=== PATIENT | female | born 1935 | race Caucasian/White ===

== ENCOUNTER 2017-12-17 22:53 | Inpatient (IN) | payer BC, OTHER ==
--- NOTE | 2017-12-18 00:21 | PDOC ---
History of Present Illness - General Chief Complaint: Pain, Acute Stated Complaint: LRFT KNEE PAIN Time Seen by Provider: 12/17/17 23:41 - History of Present Illness Initial Comments: 82-year-old female presents for evaluation of atraumatic bilateral knee pain. She states the pain started while she was sitting on a couch and she was unable to stand because of her weakness. She does have a right total knee arthroplasty which was done about 8 years ago. She has diagnosis of left knee osteoarthritis. She is on Coumadin for atrial fibrillation. Past medical history includes A. fib, hypothyroidism, and hypertension. 12/18/17 00:11 Past History - Past Medical History Allergies/Adverse Reactions: Allergies Allergy/AdvReac Type Severity Reaction Status Date / Time No Known Allergies Allergy Verified 12/17/17 23:53 - Suicide/Smoking/Psychosocial Hx Smoking History: Never smoked Have you smoked in the past 12 months: No Information on smoking cessation initiated: No Hx Alcohol Use: No Drug/Substance Use Hx: No Review of Systems - Review of Systems Musculoskeletal: Yes: Joint Pain All Other Systems: Reviewed and Negative *Physical Exam - Vital Signs Last Vital Signs Temp Pulse Resp BP Pulse Ox 98.1 F 95 H 19 141/79 97 12/17/17 23:46 12/17/17 23:46 12/17/17 23:46 12/17/17 23:46 12/17/17 23:46 - Physical Exam Comments: Right knee skin color and temperature are normal there is a well-healed midline incision. Range of Motion 0-30 with discomfort fine For soft and nontender. She has no gross sensorimotor deficits Left knee skin color and temperature are within normal limits range of motion 0 to about 20. There is pain at terminal flexion no tenderness fine For soft and nontender she has no gross sensorimotor deficits 12/18/17 00:12 12/18/17 00:50 Of note she complains of left elbow pain as well which she feels she may have hurt while trying to lift her self up off the couch. Left elbow skin color and temperature within normal limits is 30 extension lag minimal tenderness flexion is full nonpainful. Upper extremity compartments are soft and nontender. no gross Sensorimotor deficits There is tenderness over the radial head with supination and pronation. 12/18/17 01:51 ED Treatment Course - RADIOLOGY Radiology Studies Ordered: Category Date Time Status KNEE 3 POS-LEFT [RAD] Stat Radiology 12/18/17 00:10 Ordered KNEE 3 POS-RIGHT [RAD] Stat Radiology 12/18/17 00:10 Ordered Medical Decision Making - Medical Decision Making 12/18/17 01:52 Call placed to PCP, pt unable to mobilize home. L elbow raidograph shows a radial head fx of questionable age. R knee patella fx of questionable age. L knee OA 12/18/17 01:53 12/18/17 02:28 Another call to PCP Dr Jones placed *DC/Admit/Observation/Transfer Diagnosis at time of Disposition: Elbow fracture, left, Osteoarthritis involving multiple joints on both sides of body - Discharge Dispostion Condition at time of disposition: Fair Decision to Admit order: Yes - Referrals Referrals: Ajith Jones MD [Primary Care Provider] - - Patient Instructions - Post Discharge Activity
[2017-12-18 07:30] LABS: BASO % 0.6 % (0-2.0); EOS % 0.1 % (0-4.5); HEMOGLOBIN 12.9 GM/dL (10.7-15.3); LYMPH % 10.5 % (8-40); MCH 29.1 pg (25.7-33.7); MCHC 33.2 g/dl (32.0-36.0); MEAN CELL VOLUME 87.8 fl (80-96); MONO % 12.7 % (3.8-10.2); NEUT % 76.1 % (42.8-82.8); PLATELET COUNT 213 K/MM3 (134-434); RBC 4.44 M/mm3 (3.60-5.2); WHITE BLOOD COUNT 10.8 K/mm3 (4.0-10.0)
[2017-12-18 09:28] LABS: ALBUMIN 2.4 g/dl (3.4-5.0); ANION GAP 8 (8-16); BILIRUBIN,TOTAL 0.7 mg/dL (0.2-1.0); BLOOD UREA NITROGEN 13 mg/dL (7-18); CHLORIDE 118 mmol/L (98-107); CO2 21 mmol/L (21-32); CREATININE 0.5 mg/dL (0.55-1.02); GLUCOSE,RANDOM 78 mg/dL (74-106); SGOT/AST 13 U/L (15-37); SGPT/ALT 15 U/L (12-78); SODIUM 147 mmol/L (136-145); TOT PROT 5.1 g/dl (6.4-8.2)
[2017-12-18 09:29] LABS: ALK PHOS 55 U/L (45-117)
[2017-12-18 09:46] LABS: CALCIUM 6.6 mg/dL (8.5-10.1); POTASSIUM 2.9 mmol/L (3.5-5.1)
[2017-12-18] MEDS ORDERED: CALCIUM 250MG/VIT-D 125 UNITS 1 COMBO TABLET PO SCH (10:00)
[2017-12-18] MEDS ORDERED: ONDANSETRON 4 MG/2 ML VIAL IVPUSH PRN (11:23)
[2017-12-18] MEDS ORDERED: POTASSIUM CHLORIDE 20 MEQ PREMIX IVPB 100 ML IVPB ONE (11:27)
[2017-12-18] MEDS ORDERED: POTASSIUM CHLORIDE TABS 10 MEQ TABLET.ER (FP) PO ONE (11:27)
--- NOTE | 2017-12-18 11:28 | HP ---
Admitting History and Physical - Primary Care Physician PCP: Ajith Jones - Admission Chief Complaint: My knee hurts History of Present Illness: Mrs Flowers is an 82 year old female who comes in with acute on chronic L knee and L elbow pain. She says she has a history of arthritis and often has pain when walking. She uses a walker and knows her L knee needs to be replaced. She was sitting in her recliner yesterday and it was hot. She went to get up but because of the heat and diaphoresis she could not get out of the chair. She continued to try but was unable, then she noted worsening pain in both her knee and elbow. With the weakness and pain she presented to the ED. Aside from this she is without complaint. She denies fevers, chills, lightheadedness, dizziness , passing out, chest pain or pressure, shortness of breath, nausea, vomiting, diarrhea, constipation, pain or difficulty urinating, or swelling. History Source: Patient Limitations to Obtaining History: No Limitations - Past Medical History Cardiovascular: Yes: AFIB, HTN, Hyperlipdemia Psych: Yes: Anxiety Musculoskeletal: Yes: Osteoarthritis Endocrine: Yes: Hypothyroidism - Past Surgical History Past Surgical History: Yes: Joint Replacement (R knee) - Smoking History Smoking history: Never smoked Have you smoked in the past 12 months: No - Alcohol/Substance Use Hx Alcohol Use: No History of Substance Use: reports: None - Social History Usual Living Arrangement: Yes: Alone ADL: Independent History of Recent Travel: No Home Medications - Allergies Allergies/Adverse Reactions: Allergies Allergy/AdvReac Type Severity Reaction Status Date / Time No Known Allergies Allergy Verified 12/17/17 23:53 - Home Medications Home Medications: Ambulatory Orders Calcium 250Mg/Vit-D 125 Units [Oscal 250 mg+D -] 2 combo PO DAILY 12/18/17 Cholecalciferol (Vitamin D3) [Vitamin D3] 2,000 unit PO DAILY 12/18/17 Levothyroxine Sodium [Levo-T] 112 mcg PO DAILY 12/18/17 Losartan Potassium 50 mg PO DAILY 12/18/17 Metoprolol Tartrate 50 mg PO BID 12/18/17 Sertraline HCl 50 mg PO DAILY 12/18/17 Vitamin B Complex [B Complex] 1 each PO DAILY 12/18/17 Warfarin Na [Coumadin] 5 mg PO ASDIR 12/18/17 Warfarin Na [Coumadin] 7.5 mg PO ASDIR 12/18/17 Family Disease History - Family Disease History Family Disease History: Other: Father (CVA), Mother (CVA), Daughter (asthma, arrhythmia) Review of Systems Findings/Remarks: Full review of systems obtained, as per HPI and otherwise negative Physical Examination Vital Signs: Vital Signs Temperature 37.1 C 12/18/17 07:07 Pulse Rate 99 H 12/18/17 07:07 Respiratory Rate 18 12/18/17 07:07 Blood Pressure 138/73 12/18/17 07:07 O2 Sat by Pulse Oximetry (%) 97 12/18/17 07:07 Constitutional: Yes: No Distress, Calm, Obese Eyes: Yes: Conjunctiva Clear, EOM Intact, PERRL HENT: Yes: Atraumatic, Normocephalic Cardiovascular: Yes: Pulse Irregular. No: Tachycardia, Gallop, Murmur, Rub Respiratory: Yes: Regular, CTA Bilaterally. No: Rales, Rhonchi, Wheezes Gastrointestinal: Yes: Normal Bowel Sounds, Soft. No: Distention, Tenderness Extremities: Yes: WNL Edema: No Labs: CBC, BMP 12/18/17 07:00 12/18/17 08:34 Imaging - Results X-ray: Report Reviewed Problem List - Problems (1) Elbow fracture, left Assessment/Plan: -appears old on film -consult ortho and PT -tramadol for pain Code(s): S42.402A - UNSP FRACTURE OF LOWER END OF LEFT HUMERUS, INIT FOR CLOS FX Qualifiers: Encounter type: initial encounter Fracture type: closed Qualified Code(s) : S42.402A - Unspecified fracture of lower end of left humerus, initial encounter for closed fracture (2) Hypokalemia Assessment/Plan: -replace -recheck in am Code(s): E87.6 - HYPOKALEMIA (3) HTN (hypertension) Assessment/Plan: -controlled -continue lopressor and cozaar Code(s): I10 - ESSENTIAL (PRIMARY) HYPERTENSION (4) Hypothyroid Assessment/Plan: -continue synthroid Code(s): E03.9 - HYPOTHYROIDISM, UNSPECIFIED (5) Atrial fibrillation Assessment/Plan: -continue lopressor and coumadin -daily INRs Code(s): I48.91 - UNSPECIFIED ATRIAL FIBRILLATION Qualifiers: Atrial fibrillation type: chronic Qualified Code(s): I48.2 - Chronic atrial fibrillation
[2017-12-18] MEDS ORDERED: POTASSIUM CHLORIDE TABS 20 MEQ TABLET.ER (FP) PO ONE (12:05)
[2017-12-18] MEDS ORDERED: KCL 10 MEQ IVPB 20 MEQ/200 ML INFUS.BAG IVPB ONE (12:05)
[2017-12-18] MEDS ORDERED: POTASSIUM CHLORIDE 20 MEQ in SODIUM CHLORIDE 250 ML IVPB ONE (12:15)
[2017-12-18] MEDS: CALCIUM 250MG/VIT-D 125 UNITS 1 COMBO TABLET PO SCH (19:20)
[2017-12-18 20:28] LABS: INR 3.2 (0.82-1.09); PROTHROMBIN TIME (PATIENT) 36.2 SEC (9.7-13.0)
[2017-12-18 21:03] VITALS: BMI 48.4
[2017-12-18] MEDS: MELATONIN 5 MG TABLETS PO PRN (23:04)
--- NOTE | 2017-12-18 23:42 | EKG ---
Test Reason : Blood Pressure : / mmHG Vent. Rate : 083 BPM Atrial Rate : 277 BPM P-R Int : 000 ms QRS Dur : 084 ms QT Int : 364 ms P-R-T Axes : 000 009 -07 degrees QTc Int : 427 ms ATRIAL FIBRILLATION WITH PREMATURE VENTRICULAR OR ABERRANTLY CONDUCTED COMPLEXES ABNORMAL ECG WHEN COMPARED WITH ECG OF 17-DEC-2009 09:09, NO SIGNIFICANT CHANGE WAS FOUND Confirmed by MARIANO OSBORN MD ([id number]) on 12/18/2017 11:42:11 PM Referred By: Confirmed By:MARIANO OSBORN MD
[2017-12-19] MEDS: LEVOTHYROXINE NA 112 MCG TABLET (FP) PO SCH (06:53)
[2017-12-19 08:18] LABS: BASO % 0.3 % (0-2.0); EOS % 0.4 % (0-4.5); HEMATOCRIT 39.3 % (32.4-45.2); LYMPH % 7.9 % (8-40); MCHC 33.1 g/dl (32.0-36.0); MEAN CELL VOLUME 87.6 fl (80-96); MONO % 11.3 % (3.8-10.2); NEUT % 80.1 % (42.8-82.8); PLATELET COUNT 194 K/MM3 (134-434); RBC 4.48 M/mm3 (3.60-5.2); WHITE BLOOD COUNT 12.5 K/mm3 (4.0-10.0)
[2017-12-19 08:29] LABS: INR 2.7 (0.82-1.09); PROTHROMBIN TIME (PATIENT) 30.5 SEC (9.7-13.0)
[2017-12-19 08:41] LABS: CHLORIDE 107 mmol/L (98-107); POTASSIUM 4.2 mmol/L (3.5-5.1); SODIUM 140 mmol/L (136-145)
[2017-12-19] MEDS: ACETAMINOPHEN 325 MG TABLET (FP) PO PRN ×2 (08:50→15:00)
[2017-12-19 09:40] LABS: ANION GAP 8 (8-16); BLOOD UREA NITROGEN 13 mg/dL (7-18); CALCIUM 8.6 mg/dL (8.5-10.1); CO2 25 mmol/L (21-32); CREATININE 0.7 mg/dL (0.55-1.02); GLUCOSE,RANDOM 90 mg/dL (74-106); MAGNESIUM 2.1 mg/dL (1.8-2.4); PHOSPHOROUS 3.6 mg/dL (2.5-4.9)
[2017-12-19] MEDS: CALCIUM 250MG/VIT-D 125 UNITS 1 COMBO TABLET PO SCH (09:44)
[2017-12-19] MEDS: VITAMIN B COMPLEX W/C COMBO TABLET (FP) PO SCH (09:45)
[2017-12-19] MEDS: CHOLECALCIFEROL (VITAMIN D3) 1,000 UNIT TABLET (FP) PO SCH (09:45)
[2017-12-19] MEDS: LOSARTAN POTASSIUM 50 MG TABLET (FP) PO SCH (09:45)
[2017-12-19] MEDS: SERTRALINE HCL 50 MG TABLET (FP) PO SCH (09:45)
[2017-12-19] MEDS ORDERED: CHOLECALCIFEROL (VITAMIN D3) 1,000 UNIT TABLET (FP) PO SCH (10:00)
[2017-12-19] MEDS: METOPROLOL TARTRATE 50 MG TABLET (FP) PO SCH ×2 (10:25→22:10)
[2017-12-19] MEDS: traMADol HCL 50 MG TABLET PO PRN ×2 (10:31→18:17)
--- NOTE | 2017-12-19 12:13 | PN ---
Progress Note, Physician Chief Complaint: Ms Flowers complains of severe pain at previous IV site. Family very concerned it is infected. No cp, sob, n/v. - Current Medication List Current Medications: Active Medications Acetaminophen (Tylenol -) 650 mg PO Q4H PRN PRN Reason: PAIN Last Admin: 12/19/17 08:50 Dose: 650 mg Calcium/Vitamin D (Oscal 250 Mg+D -) 2 tab PO DAILY [facility] Last Admin: 12/19/17 09:44 Dose: 2 tab Cholecalciferol (Vitamin D3 -) 2,000 unit PO DAILY [facility] Last Admin: 12/19/17 09:45 Dose: 2,000 unit Levothyroxine Sodium (Synthroid -) 112 mcg PO DAILY@0700 [facility] Last Admin: 12/19/17 06:53 Dose: 112 mcg Losartan Potassium (Cozaar -) 50 mg PO DAILY [facility] Last Admin: 12/19/17 09:45 Dose: 50 mg Melatonin (Melatonin) 5 mg PO HS PRN PRN Reason: INSOMNIA Last Admin: 12/18/17 23:04 Dose: 5 mg Metoprolol Tartrate (Lopressor -) 50 mg PO BID [facility] Last Admin: 12/19/17 10:25 Dose: Not Given Multivitamins (Total B With C -) 1 each PO DAILY [facility] Last Admin: 12/19/17 09:45 Dose: 1 each Ondansetron HCl (Zofran Injection) 4 mg IVPUSH Q6H PRN PRN Reason: NAUSEA Sertraline HCl (Zoloft -) 50 mg PO DAILY [facility] Last Admin: 12/19/17 09:45 Dose: 50 mg Tramadol HCl (Ultram -) 50 mg PO Q8H PRN PRN Reason: PAIN LEVEL 6-10 Last Admin: 12/19/17 10:31 Dose: 50 mg Warfarin Sodium (Coumadin -) 5 mg PO DAILY@1800 [facility] - Objective Vital Signs: Vital Signs Temperature 37.3 C 12/19/17 07:20 Pulse Rate 110 H 12/19/17 07:20 Respiratory Rate 22 12/19/17 07:20 Blood Pressure 147/70 12/19/17 07:20 O2 Sat by Pulse Oximetry (%) 96 12/18/17 21:09 Constitutional: Yes: No Distress, Calm, Obese Cardiovascular: Yes: Pulse Irregular. No: Tachycardia, Gallop, Murmur, Rub Respiratory: Yes: Regular, CTA Bilaterally. No: Rales, Rhonchi, Wheezes Gastrointestinal: Yes: Normal Bowel Sounds, Soft. No: Distention, Tenderness Extremities: Yes: WNL, Other (small area of infiltration on LUE without pain or erythema) Edema: No Labs: CBC, BMP 12/19/17 07:40 12/19/17 07:25 INR, PTT INR 2.70 (0.82-1.09) H 12/19/17 07:40 Assessment/Plan (1) Elbow fracture, left Assessment/Plan: -appears old on film -awaiting ortho evaluation -PT pending -continue pain management Code(s): S42.402A - UNSP FRACTURE OF LOWER END OF LEFT HUMERUS, INIT FOR CLOS FX Qualifiers: Encounter type: initial encounter Fracture type: closed Qualified Code(s) : S42.402A - Unspecified fracture of lower end of left humerus, initial encounter for closed fracture (2) Hypokalemia Assessment/Plan: -replaced Code(s): E87.6 - HYPOKALEMIA (3) HTN (hypertension) Assessment/Plan: -controlled -continue lopressor and cozaar Code(s): I10 - ESSENTIAL (PRIMARY) HYPERTENSION (4) Hypothyroid Assessment/Plan: -continue synthroid Code(s): E03.9 - HYPOTHYROIDISM, UNSPECIFIED (5) Atrial fibrillation Assessment/Plan: -continue lopressor and coumadin -daily INRs Code(s): I48.91 - UNSPECIFIED ATRIAL FIBRILLATION Qualifiers: Atrial fibrillation type: chronic Qualified Code(s): I48.2 - Chronic atrial fibrillation
--- NOTE | 2017-12-19 15:49 | CONSULT ---
Consult - text type - Consultation Consultation Note: Asked to eval this 82F for left elbow pain, bilateral knee pain. Has h/o right TJR done 8 years ago and left knee OA. Yesterday had bilateral knee pain and could not get up. Developed left elbow pain trying to push up from chair. PMH: A. fib, hypothyroidism, and hypertension. Meds: reviewed in chart All: nkda FH: n/c SH: neg cig/etoh/ivda ROS: no recent fevers/chills/weight loss PE: obese female, awake/alert/oriented x3 left forearm swollen from infiltrated iv which was removed earlier. tender to palpation. right knee well healed incision, no redness or warmth, PROM without significant pain left knee PROm without pain, no redenss or warmth calves soft NVID left elbow mild tenderness posteriorly Xrays: right knee s/p TKR, no acute fracture. Possible healed superior pole fracture of patella left knee: advanced OA, no fracture left elbow: healed radial head/neck deformity Imp: atraumatic bilateral knee pain; no acute fracture; left elbow sprain, no acute fracture -will order PT - OOB/WBAT -dispo planning -will follow up with her orthopaedic surgeon as outpatient to discuss left TKR.
[2017-12-19] MEDS: WARFARIN NA 5 MG TABLET (UD) PO SCH (18:15)
--- NOTE | 2017-12-19 19:19 | CONS ---
DATE OF CONSULTATION: 12/19/2017 REQUESTING PHYSICIAN: Vlad Hickey M.D. CARDIOLOGY CONSULTATION HISTORY OF PRESENT ILLNESS: The patient is an 82-year-old female with longstanding history of paroxysmal atrial fibrillation, hypertension, hypertensive cardiovascular disease, hypothyroidism, history of anxiety disorder/depression, generalized osteoarthritis, history of aortic valvular disease with aortic regurgitation, vitamin D deficiency. Patient had been sitting for a prolonged period of time on a couch, was unable to get up, and states that when she was lifted up by her children, and both her knees were locked, and she could not stand up. She also felt lightheaded. Paramedics were called, and was transported to the hospital. There is no history of chest pain or discomfort either at rest or with exertion, no exertional dyspnea, paroxysmal nocturnal dyspnea, or orthopnea. There is no history of lightheadedness, dizziness, presyncope or syncope. PAST HISTORY: As mentioned in the history of present illness. SURGICAL HISTORY: 1. Status post right knee arthroplasty. 2. Status post bilateral cataract extractions and lens implantation. 3. Status post repair of left ankle fracture. SOCIAL HISTORY: She is a , has 2 sons and a daughter. Her older son of Guillain-Lisco. She never smoked, and has no history of alcohol use. FAMILY HISTORY: Father at age 47, apparently related to a cerebrovascular accident. Mother at age 82 of a cerebrovascular accident, and there is probable history of hypertension. Has 2 brothers and 1 sister. One of the brothers at the age of 62 related to carcinoma. The other brother is healthy. ALLERGIES: Patient apparently is intolerant to FOSAMAX. MEDICATION: 1. Losartan 50 mg p.o. daily. 2. Zofran 4 mg IV q.6 h. p.r.n. 3. Warfarin 5 mg p.o. daily. 4. Sertraline 50 mg p.o. daily. 5. Metoprolol tartrate 50 mg p.o. b.i.d. 6. Tramadol 50 mg q.8 h. p.r.n. for pain. 7. Melatonin 5 mg p.o. at bedtime p.r.n. 8. Os-Han 250 with magnesium and vitamin D 2 tablets p.o. daily. 9. Synthroid 112 mcg p.o. daily. 10. Multivitamin 1 p.o. daily. 11. Vitamin D3 2000 international units p.o. daily. REVIEW OF SYSTEMS: Constitutional: No history of chills, fever, or night sweats. No history of unintentional weight loss. HEENT: No history of headaches, diplopia, blurred vision reported. No history of epistaxis, hoarseness. No history of tinnitus, or deafness. Cardiovascular: See history of present illness. Respiratory: No history of cough, expectoration or hemoptysis. No history of tuberculosis. Gastrointestinal: No history of nausea, vomiting, melena or hematemesis. No history of abdominal pain or discomfort, denies any change in bowel habits. Neurological: History of recent lightheadedness. No history of dizziness, presyncope or syncope. No history of seizures or focal weakness. Genitourinary: Denies having dysuria, frequency, or hematuria. Musculoskeletal: myalgias/arthritis. History of advanced arthritis involving the left knee. Hematological: No history of anemia, ecchymosis, or bleeding. PHYSICAL EXAMINATION: General: An 82-year-old morbidly obese female was in no acute distress, there was no pallor, cyanosis, clubbing or jaundice. Vital signs: Weight 265 pounds, blood pressure 146/76 mmHg, pulse 90 beats per minute and regular, temperature 99.7 degrees Fahrenheit. Oxygen saturation on December 18, 2017, was 96% on room air. Respirations were 22 per minute. Neck: Supple. No jugulovenous distention, hepatojugular reflex is negative, carotids were 2+, upstrokes were normal, no bruits were heard, and no thyromegaly was present. Heart: No heaves or thrills. S1 and S2 were normal. Ejection systolic murmur grade 1/6 was heard at the 2nd right intercostal space and also along the left sternal border, unable to appreciate a diastolic murmur. No gallops were heard. Lungs: Clear on auscultation. Abdomen: Obese, soft and nontender. No hepatosplenomegaly or palpable masses were felt. Bowel sounds were present. No bruits were heard. Extremities: No calf tenderness or dependent edema. The right foot was cooler than left. Left dorsalis pedis was 1+, the right dorsalis pedis could not be palpated. Both posterior tibial pulses could not be palpated. LABORATORY DATA: CBC on December 19, 2017: WBC count 12,500. Hemoglobin 13.0 g/dL. Platelet count 194,000. Elevated monocytes 11.3%. Chemistries on admission, December 18, 2017: Sodium 147, potassium 2.9, chloride 118, CO2 of 21 mmol/L. Calcium was 6.6 mg/dL. Repeat electrolytes: sodium 140, potassium 4.2, chloride 107, CO2 of 25, and repeat calcium was 8.6 mg/dL. EKG 12/18/2017: Atrial fibrillation with premature ventricular or aberrant conducted complexes. When compared to EKG of December 17, 2009, no significant changes were found. X-ray chest. Impression: Large heart. No acute change since December 03, 2012. IMPRESSION: 1. Hypertension, hypertensive cardiovascular disease. 2. Permanent atrial fibrillation with controlled ventricular response. 3. Generalized osteoarthritis. 4. Hypothyroidism, on replacement therapy. 5. Hypokalemia, corrected. 6. History of anxiety disorder/depression. 7. Morbid obesity. RECOMMENDATION: 1. Concur with current line of cardiac therapy. 2. Patient is being evaluated for pain involving the left elbow. 3. Physical therapy. 4. Echocardiogram for evaluation of aortic valvular disease and history of aortic insufficiency. Thank you for your referral. Yours sincerely, RAÚL ROBLES M.D. [id number]
[2017-12-19] MEDS: MELATONIN 5 MG TABLETS PO PRN (22:10)
[2017-12-20] MEDS: LEVOTHYROXINE NA 112 MCG TABLET (FP) PO SCH (06:49)
[2017-12-20 07:56] LABS: INR 2.89 (0.82-1.09); PROTHROMBIN TIME (PATIENT) 32.7 SEC (9.7-13.0)
[2017-12-20 07:57] LABS: BASO % 0.4 % (0-2.0); EOS % 0.1 % (0-4.5); HEMATOCRIT 39.5 % (32.4-45.2); LYMPH % 6.7 % (8-40); MCH 29.1 pg (25.7-33.7); MCHC 32.9 g/dl (32.0-36.0); MEAN CELL VOLUME 88.4 fl (80-96); MEAN PLT VOLUME 11.3 fl (7.5-11.1); MONO % 12.8 % (3.8-10.2); PLATELET COUNT 221 K/MM3 (134-434); RBC 4.47 M/mm3 (3.60-5.2); RDW 15.9 % (11.6-15.6)
[2017-12-20 08:17] LABS: CALCIUM 8.5 mg/dL (8.5-10.1); CHLORIDE 104 mmol/L (98-107); POTASSIUM 4.2 mmol/L (3.5-5.1); SODIUM 139 mmol/L (136-145)
[2017-12-20 08:21] LABS: ANION GAP 7 (8-16); BLOOD UREA NITROGEN 14 mg/dL (7-18); CO2 28 mmol/L (21-32); CREATININE 0.6 mg/dL (0.55-1.02); GLUCOSE,RANDOM 102 mg/dL (74-106); MAGNESIUM 2.1 mg/dL (1.8-2.4); PHOSPHOROUS 3.3 mg/dL (2.5-4.9)
[2017-12-20] MEDS: traMADol HCL 50 MG TABLET PO PRN (09:10)
[2017-12-20] MEDS: CALCIUM 250MG/VIT-D 125 UNITS 1 COMBO TABLET PO SCH (09:12)
[2017-12-20] MEDS: LOSARTAN POTASSIUM 50 MG TABLET (FP) PO SCH (09:12)
[2017-12-20] MEDS: VITAMIN B COMPLEX W/C COMBO TABLET (FP) PO SCH (09:12)
[2017-12-20] MEDS: CHOLECALCIFEROL (VITAMIN D3) 1,000 UNIT TABLET (FP) PO SCH (09:12)
[2017-12-20] MEDS: METOPROLOL TARTRATE 50 MG TABLET (FP) PO SCH ×2 (09:12→22:07)
[2017-12-20] MEDS: SERTRALINE HCL 50 MG TABLET (FP) PO SCH (09:12)
--- NOTE | 2017-12-20 13:03 | PN ---
Progress Note, Physician Chief Complaint: Ms Flowers complains of pain and swelling in her L hand. No cp, sob, n/v. - Current Medication List Current Medications: Active Medications Acetaminophen (Tylenol -) 650 mg PO Q4H PRN PRN Reason: PAIN Last Admin: 12/19/17 15:00 Dose: 650 mg Calcium/Vitamin D (Oscal 250 Mg+D -) 2 tab PO DAILY [facility] Last Admin: 12/20/17 09:12 Dose: 2 tab Cholecalciferol (Vitamin D3 -) 2,000 unit PO DAILY [facility] Last Admin: 12/20/17 09:12 Dose: 2,000 unit Levothyroxine Sodium (Synthroid -) 112 mcg PO DAILY@0700 [facility] Last Admin: 12/20/17 06:49 Dose: 112 mcg Losartan Potassium (Cozaar -) 50 mg PO DAILY [facility] Last Admin: 12/20/17 09:12 Dose: 50 mg Melatonin (Melatonin) 5 mg PO HS PRN PRN Reason: INSOMNIA Last Admin: 12/19/17 22:10 Dose: 5 mg Metoprolol Tartrate (Lopressor -) 50 mg PO BID [facility] Last Admin: 12/20/17 09:12 Dose: 50 mg Multivitamins (Total B With C -) 1 each PO DAILY [facility] Last Admin: 12/20/17 09:12 Dose: 1 each Ondansetron HCl (Zofran Injection) 4 mg IVPUSH Q6H PRN PRN Reason: NAUSEA Sertraline HCl (Zoloft -) 50 mg PO DAILY [facility] Last Admin: 12/20/17 09:12 Dose: 50 mg Tramadol HCl (Ultram -) 50 mg PO Q8H PRN PRN Reason: PAIN LEVEL 6-10 Last Admin: 12/20/17 09:10 Dose: 50 mg Warfarin Sodium (Coumadin -) 5 mg PO DAILY@1800 [facility] Last Admin: 12/19/17 18:15 Dose: 5 mg - Objective Vital Signs: Vital Signs Temperature 37.5 C 12/20/17 10:00 Pulse Rate 97 H 12/20/17 10:00 Respiratory Rate 20 12/20/17 10:00 Blood Pressure 148/75 12/20/17 10:00 O2 Sat by Pulse Oximetry (%) 96 12/20/17 02:00 Constitutional: Yes: No Distress, Calm, Obese Cardiovascular: Yes: Regular Rate and Rhythm. No: Gallop, Murmur, Rub Respiratory: Yes: Regular, CTA Bilaterally. No: Rales, Rhonchi, Wheezes Gastrointestinal: Yes: Normal Bowel Sounds, Soft. No: Distention, Tenderness Extremities: Yes: Erythema Edema: LUE: 1+ (L hand and wrist) Labs: CBC, BMP 12/20/17 07:25 12/20/17 07:25 INR, PTT INR 2.89 (0.82-1.09) H 12/20/17 07:25 Assessment/Plan (1) Elbow fracture, left Assessment/Plan: -no further intervention needed Code(s): S42.402A - UNSP FRACTURE OF LOWER END OF LEFT HUMERUS, INIT FOR CLOS FX Qualifiers: Encounter type: initial encounter Fracture type: closed Qualified Code(s) : S42.402A - Unspecified fracture of lower end of left humerus, initial encounter for closed fracture (2) Hypokalemia Assessment/Plan: -replaced Code(s): E87.6 - HYPOKALEMIA (3) HTN (hypertension) Assessment/Plan: -controlled -continue lopressor and cozaar Code(s): I10 - ESSENTIAL (PRIMARY) HYPERTENSION (4) Hypothyroid Assessment/Plan: -continue synthroid Code(s): E03.9 - HYPOTHYROIDISM, UNSPECIFIED (5) Atrial fibrillation Assessment/Plan: -continue lopressor and coumadin -daily INRs Code(s): I48.91 - UNSPECIFIED ATRIAL FIBRILLATION Qualifiers: Atrial fibrillation type: chronic Qualified Code(s): I48.2 - Chronic atrial fibrillation (6) Cellulitis -patient with worsening swelling and erythema in L hand and wrist -concern for IV related cellulitis -will obtain x-ray since with swelling -case d/w ID -start vancomycin -no drop in H/H, lower suspicion for hematoma
[2017-12-20 14:24] LABS: URIC ACID 3.7 mg/dL (2.6-7.2)
--- NOTE | 2017-12-20 16:59 | PN ---
Progress Note (short form) - Note Progress Note: ID consult dictated d/w Dr Hickey Worsening pain and swelling dorsum of left hand since yesterday-r/o cellulitis versus iv infiltration? admitted for knee and elbow pain ?iv in the hand low grade temp 99 blood cultures vancomycin elevation xray ice ortho f/u Problem List - Problems (1) Cellulitis Code(s): L03.90 - CELLULITIS, UNSPECIFIED Qualifiers: Laterality: left (2) Osteoarthritis involving multiple joints on both sides of body Code(s): M15.9 - POLYOSTEOARTHRITIS, UNSPECIFIED
--- NOTE | 2017-12-20 18:34 | CONS ---
DATE OF CONSULTATION: DATE OF DICTATION: 12/20/2017 INFECTIOUS DISEASE CONSULTATION REQUESTING PHYSICIAN: Vlad Hickey M.D. HISTORY OF PRESENT ILLNESS: This is an 82-year-old woman with osteoarthritis. She has chronic bilateral knee pain, left greater than right, and left elbow pain. She has history of arthritis. She was sitting in her recliner and tried to get up and was not able to do so, and she was brought to the emergency room. There was no fall. She was admitted on the . Since that time, she has had x-rays and evaluation by orthopedics, on the evidence of arthritis, she has not had any new fractures. She has evidence of a prior fracture of her left elbow. I am asked to see her because she was noted yesterday to have some mild erythema of her left hand, which per her daughter occurred after admission and today the erythema and swelling of the hand is worsened. She denies any fevers, chills, nausea, vomiting, diarrhea, dysuria. She has no chest pain or shortness of breath. PAST MEDICAL HISTORY: Notable for atrial fibrillation, hypertension, hyperlipidemia, anxiety, osteoarthritis, and hypothyroidism. SURGICAL HISTORY: Notable for right knee replacement and a left ankle fracture. She reports she has plates and screws in her left ankle secondary to a fall in her 30s. SOCIAL HISTORY: There is no history of any cigarette, alcohol, or substance use. She lives alone. She is independent. She has no known drug allergies. MEDICATION: At home include calcium, vitamin D, levothyroxine, losartan, metoprolol, sertraline, vitamin B complex, and Coumadin. FAMILY HISTORY: Notable for strokes and she has a daughter with asthma and arrhythmia. She is . REVIEW OF SYSTEMS: As per HPI. PHYSICAL EXAMINATION: General: She is awake and alert. Vital signs: T-max is 99.7, current temperature is 99.5, pulse 97, blood pressure 148/75, respiratory rate 20. She is saturating 96%. HEENT: Normocephalic. Eyes are anicteric. Neck: Supple. Extremities: Her left hand is markedly swollen compared to her right, which has osteoarthritic changes. She has full range of motion in both her shoulders and her elbows. She has diminished range of motion of her left wrist secondary to swelling of the dorsum of her left hand. She has diffuse erythema and warmth of the hand. She has patent radial pulse in that hand and good sensation. Heart: Irregular. Lungs: Clear to auscultation. Abdomen: Soft, nontender. 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 Her left ankle has evidence of a scar on the medial portion. She will not let me take the sock off her left foot. Her right foot she will permit, and she has no evidence of any skin breakdown. LABORATORY: Notable for a white count of 15, hemoglobin 13, platelets 221, INR is 2.89, BUN and creatinine are 14 and 0.6. X-rays are notable. Chest x-ray is clear. She has x-rays of her knees and elbows. There is an old fracture in the radial head of the left elbow. She has a right knee replacement without any signs of acute fracture, and she has left knee shows extensive arthritic changes. IMPRESSION: In summary, this is an 82-year-old woman with cellulitis versus infectious disease infiltration of the left hand that has been worsening. She has warmth, low-grade temperature of 99. Would suggest cellulitis. Would obtain blood cultures, vancomycin. Elevation of the hand with x-ray as well. Ice on the hand with orthopedics followup. She is already being seen by orthopedics. The case was discussed with Dr. Hickey and with the daughter who is at the bedside. CABRERA KELLER M.D. [id number]
[2017-12-20] MEDS: WARFARIN NA 5 MG TABLET (UD) PO SCH (19:00)
[2017-12-20] MEDS: VANCOMYCIN 1,250 MG in DEXTROSE 5%-WATER - 250 ML IVPB SCH (19:55)
[2017-12-20] MEDS: MELATONIN 5 MG TABLETS PO PRN (22:11)
[2017-12-21] MEDS: NYSTATIN POWDER 100,000 UNITS/GM - 15 GM TOPICAL POWDER TP SCH ×2 (00:35→09:39)
[2017-12-21] MEDS: VANCOMYCIN 1,250 MG in DEXTROSE 5%-WATER - 250 ML IVPB SCH (05:48)
[2017-12-21] MEDS: LEVOTHYROXINE NA 112 MCG TABLET (FP) PO SCH (06:37)
[2017-12-21 07:40] LABS: BASO % 0.2 % (0-2.0); EOS % 0.8 % (0-4.5); HEMATOCRIT 37.6 % (32.4-45.2); HEMOGLOBIN 12.3 GM/dL (10.7-15.3); MCH 28.9 pg (25.7-33.7); MCHC 32.9 g/dl (32.0-36.0); MEAN CELL VOLUME 87.9 fl (80-96); MEAN PLT VOLUME 10.7 fl (7.5-11.1); MONO % 12.3 % (3.8-10.2); NEUT % 77.7 % (42.8-82.8); PLATELET COUNT 208 K/MM3 (134-434); RBC 4.28 M/mm3 (3.60-5.2); RDW 15.5 % (11.6-15.6); WHITE BLOOD COUNT 12.7 K/mm3 (4.0-10.0)
[2017-12-21 08:14] LABS: INR 2.5 (0.82-1.09); PROTHROMBIN TIME (PATIENT) 28.2 SEC (9.7-13.0)
[2017-12-21 08:17] LABS: BLOOD UREA NITROGEN 16 mg/dL (7-18); CALCIUM 8.1 mg/dL (8.5-10.1); CHLORIDE 103 mmol/L (98-107); CREATININE 0.7 mg/dL (0.55-1.02); GLUCOSE,RANDOM 121 mg/dL (74-106); MAGNESIUM 2.1 mg/dL (1.8-2.4); PHOSPHOROUS 3.3 mg/dL (2.5-4.9); POTASSIUM 3.8 mmol/L (3.5-5.1); SODIUM 138 mmol/L (136-145)
[2017-12-21 08:18] LABS: ANION GAP 8 (8-16); CO2 27 mmol/L (21-32)
[2017-12-21] MEDS: METOPROLOL TARTRATE 50 MG TABLET (FP) PO SCH ×2 (09:38→22:08)
[2017-12-21] MEDS: CALCIUM 250MG/VIT-D 125 UNITS 1 COMBO TABLET PO SCH (09:38)
[2017-12-21] MEDS: VITAMIN B COMPLEX W/C COMBO TABLET (FP) PO SCH (09:38)
[2017-12-21] MEDS: LOSARTAN POTASSIUM 50 MG TABLET (FP) PO SCH (09:39)
[2017-12-21] MEDS: CHOLECALCIFEROL (VITAMIN D3) 1,000 UNIT TABLET (FP) PO SCH (09:39)
[2017-12-21] MEDS: SERTRALINE HCL 50 MG TABLET (FP) PO SCH (09:39)
--- NOTE | 2017-12-21 11:38 | PN ---
Progress Note (short form) - Note Progress Note: ID Left arm more swollen Selected Entries 12/20/17 17:11 Temperature 99 F Pulse Rate 89 Respiratory 20 Rate Blood Pressure 120/68 LEft hand and forearm swollen not very tender no redness Microbiology Laboratory Tests 12/21/17 12/21/17 06:30 06:30 WBC 12.7 H Hgb 12.3 Plt Count 208 BUN 16 Creatinine 0.7 Assessment Infiltrated IV less likely cellulitiis Blood culture no growth this am PLan Patient has no IV at this time I would observe off antibiotic and elevate he left arm Should she have fever will need to resume Gato HERRING
--- NOTE | 2017-12-21 13:44 | PN ---
Progress Note, Physician - Current Medication List Current Medications: Active Medications Acetaminophen (Tylenol -) 650 mg PO Q4H PRN PRN Reason: PAIN Last Admin: 12/19/17 15:00 Dose: 650 mg Calcium/Vitamin D (Oscal 250 Mg+D -) 2 tab PO DAILY [facility] Last Admin: 12/21/17 09:38 Dose: 2 tab Cholecalciferol (Vitamin D3 -) 2,000 unit PO DAILY [facility] Last Admin: 12/21/17 09:39 Dose: 2,000 unit Levothyroxine Sodium (Synthroid -) 112 mcg PO DAILY@0700 [facility] Last Admin: 12/21/17 06:37 Dose: 112 mcg Losartan Potassium (Cozaar -) 50 mg PO DAILY [facility] Last Admin: 12/21/17 09:39 Dose: 50 mg Melatonin (Melatonin) 5 mg PO HS PRN PRN Reason: INSOMNIA Last Admin: 12/20/17 22:11 Dose: 5 mg Metoprolol Tartrate (Lopressor -) 50 mg PO BID [facility] Last Admin: 12/21/17 09:38 Dose: 50 mg Multivitamins (Total B With C -) 1 each PO DAILY [facility] Last Admin: 12/21/17 09:38 Dose: 1 each Nystatin (Nystop Powder -) 1 applic TP DAILY [facility] Last Admin: 12/21/17 09:39 Dose: 1 applic Ondansetron HCl (Zofran Injection) 4 mg IVPUSH Q6H PRN PRN Reason: NAUSEA Sertraline HCl (Zoloft -) 50 mg PO DAILY [facility] Last Admin: 12/21/17 09:39 Dose: 50 mg Tramadol HCl (Ultram -) 50 mg PO Q8H PRN PRN Reason: PAIN LEVEL 6-10 Last Admin: 12/20/17 09:10 Dose: 50 mg Warfarin Sodium (Coumadin -) 5 mg PO DAILY@1800 [facility] Last Admin: 12/20/17 19:00 Dose: 5 mg - Objective Vital Signs: Vital Signs Temperature 37.3 C 12/21/17 05:40 Pulse Rate 84 12/21/17 05:40 Respiratory Rate 20 12/21/17 05:40 Blood Pressure 119/68 12/21/17 05:40 O2 Sat by Pulse Oximetry (%) 96 12/21/17 02:00 Constitutional: Yes: Well Nourished, No Distress, Calm Cardiovascular: Yes: Regular Rate and Rhythm. No: Gallop, Murmur, Rub Respiratory: Yes: Regular, CTA Bilaterally. No: Rales, Rhonchi, Wheezes Gastrointestinal: Yes: Normal Bowel Sounds, Soft. No: Distention, Tenderness Extremities: Yes: WNL Edema: Yes Edema: LLE: 1+ (hand) Labs: CBC, BMP 12/21/17 06:30 12/21/17 06:30 INR, PTT INR 2.50 (0.82-1.09) H 12/21/17 06:30 Assessment/Plan (1) Elbow fracture, left Assessment/Plan: -no further intervention needed Code(s): S42.402A - UNSP FRACTURE OF LOWER END OF LEFT HUMERUS, INIT FOR CLOS FX Qualifiers: Encounter type: initial encounter Fracture type: closed Qualified Code(s) : S42.402A - Unspecified fracture of lower end of left humerus, initial encounter for closed fracture (2) Hypokalemia Assessment/Plan: -replaced Code(s): E87.6 - HYPOKALEMIA (3) HTN (hypertension) Assessment/Plan: -controlled -continue lopressor and cozaar Code(s): I10 - ESSENTIAL (PRIMARY) HYPERTENSION (4) Hypothyroid Assessment/Plan: -continue synthroid Code(s): E03.9 - HYPOTHYROIDISM, UNSPECIFIED (5) Atrial fibrillation Assessment/Plan: -continue lopressor and coumadin -daily INRs Code(s): I48.91 - UNSPECIFIED ATRIAL FIBRILLATION Qualifiers: Atrial fibrillation type: chronic Qualified Code(s): I48.2 - Chronic atrial fibrillation (6) Cellulitis -continue vancomycin currently -appreciate ID assistance -edema not improved -monitor Dispo -possible discharge when off antibiotics or on oral antibiotics
[2017-12-21] MEDS: WARFARIN NA 5 MG TABLET (UD) PO SCH (17:13)
[2017-12-21] MEDS: MELATONIN 5 MG TABLETS PO PRN (22:08)
[2017-12-22] MEDS: LEVOTHYROXINE NA 112 MCG TABLET (FP) PO SCH (06:42)
[2017-12-22 07:39] LABS: BASO % 0.5 % (0-2.0); EOS % 2.7 % (0-4.5); HEMOGLOBIN 13.2 GM/dL (10.7-15.3); LYMPH % 10.2 % (8-40); MEAN CELL VOLUME 87.8 fl (80-96); MEAN PLT VOLUME 10.4 fl (7.5-11.1); MONO % 12.4 % (3.8-10.2); NEUT % 74.2 % (42.8-82.8); PLATELET COUNT 260 K/MM3 (134-434); RBC 4.55 M/mm3 (3.60-5.2); RDW 15.6 % (11.6-15.6); WHITE BLOOD COUNT 9.9 K/mm3 (4.0-10.0)
[2017-12-22 08:03] LABS: INR 2.89 (0.82-1.09); PROTHROMBIN TIME (PATIENT) 32.7 SEC (9.7-13.0)
[2017-12-22 08:16] LABS: CHLORIDE 104 mmol/L (98-107); SODIUM 138 mmol/L (136-145)
[2017-12-22 08:32] LABS: ANION GAP 6 (8-16); BLOOD UREA NITROGEN 14 mg/dL (7-18); CALCIUM 8.3 mg/dL (8.5-10.1); CO2 28 mmol/L (21-32); CREATININE 0.6 mg/dL (0.55-1.02); GLUCOSE,RANDOM 94 mg/dL (74-106); PHOSPHOROUS 3.6 mg/dL (2.5-4.9)
[2017-12-22 08:55] LABS: MAGNESIUM 2.2 mg/dL (1.8-2.4); POTASSIUM 4.3 mmol/L (3.5-5.1)
--- NOTE | 2017-12-22 08:57 | PN ---
Progress Note, Physician Chief Complaint: ID Off antibiotic now Remains afebrile Subjective improvement - Current Medication List Current Medications: Active Medications Acetaminophen (Tylenol -) 650 mg PO Q4H PRN PRN Reason: PAIN Last Admin: 12/19/17 15:00 Dose: 650 mg Calcium/Vitamin D (Oscal 250 Mg+D -) 2 tab PO DAILY [facility] Last Admin: 12/21/17 09:38 Dose: 2 tab Cholecalciferol (Vitamin D3 -) 2,000 unit PO DAILY [facility] Last Admin: 12/21/17 09:39 Dose: 2,000 unit Levothyroxine Sodium (Synthroid -) 112 mcg PO DAILY@0700 [facility] Last Admin: 12/22/17 06:42 Dose: 112 mcg Losartan Potassium (Cozaar -) 50 mg PO DAILY [facility] Last Admin: 12/21/17 09:39 Dose: 50 mg Melatonin (Melatonin) 5 mg PO HS PRN PRN Reason: INSOMNIA Last Admin: 12/21/17 22:08 Dose: 5 mg Metoprolol Tartrate (Lopressor -) 50 mg PO BID [facility] Last Admin: 12/21/17 22:08 Dose: 50 mg Multivitamins (Total B With C -) 1 each PO DAILY [facility] Last Admin: 12/21/17 09:38 Dose: 1 each Nystatin (Nystop Powder -) 1 applic TP DAILY [facility] Last Admin: 12/21/17 09:39 Dose: 1 applic Ondansetron HCl (Zofran Injection) 4 mg IVPUSH Q6H PRN PRN Reason: NAUSEA Sertraline HCl (Zoloft -) 50 mg PO DAILY [facility] Last Admin: 12/21/17 09:39 Dose: 50 mg Tramadol HCl (Ultram -) 50 mg PO Q8H PRN PRN Reason: PAIN LEVEL 6-10 Last Admin: 12/20/17 09:10 Dose: 50 mg Warfarin Sodium (Coumadin -) 5 mg PO DAILY@1800 [facility] Last Admin: 12/21/17 17:13 Dose: 5 mg - Objective Vital Signs: Vital Signs Temperature 98.1 F 12/22/17 06:00 Pulse Rate 89 12/22/17 06:00 Respiratory Rate 18 12/22/17 06:00 Blood Pressure 115/74 12/22/17 06:00 O2 Sat by Pulse Oximetry (%) 96 12/22/17 06:00 Constitutional: Yes: Well Nourished, No Distress HENT: Yes: WNL, Atraumatic Neck: Yes: WNL, Supple Cardiovascular: Yes: S1, S2 Respiratory: Yes: WNL, Regular, CTA Bilaterally Gastrointestinal: Yes: WNL, Normal Bowel Sounds, Soft. No: Tenderness, Tenderness, Rebound Extremities: Yes: Other (Swelling 50% better min tenderness) Labs: CBC, BMP 12/22/17 06:30 INR, PTT INR 2.89 (0.82-1.09) H 12/22/17 06:30 Assessment/Plan Microbiology 12/20/17 17:56 Blood - Peripheral Venous Blood Culture - Preliminary NO GROWTH OBTAINED AFTER 24 HOURS, INCUBATION TO CONTINUE FOR 4 DAYS. 12/20/17 16:45 Blood - Peripheral Venous Blood Culture - Preliminary NO GROWTH OBTAINED AFTER 24 HOURS, INCUBATION TO CONTINUE FOR 4 DAYS. Laboratory Tests 12/22/17 12/22/17 06:30 06:30 WBC 9.9 Hgb 13.2 Plt Count 260 D BUN 14 Creatinine 0.6 Assessment INfiltration of IV site left arm MUch better with soaks elevation No antibiotics fever WBC elevation Plan Continue same management Discharge planning per PMD Gato HERRING
[2017-12-22] MEDS: CHOLECALCIFEROL (VITAMIN D3) 1,000 UNIT TABLET (FP) PO SCH (09:00)
[2017-12-22] MEDS: LOSARTAN POTASSIUM 50 MG TABLET (FP) PO SCH (09:00)
[2017-12-22] MEDS: METOPROLOL TARTRATE 50 MG TABLET (FP) PO SCH ×2 (09:00→21:52)
[2017-12-22] MEDS: traMADol HCL 50 MG TABLET PO PRN (09:00)
[2017-12-22] MEDS: CALCIUM 250MG/VIT-D 125 UNITS 1 COMBO TABLET PO SCH (09:00)
[2017-12-22] MEDS: VITAMIN B COMPLEX W/C COMBO TABLET (FP) PO SCH (09:00)
[2017-12-22] MEDS: SERTRALINE HCL 50 MG TABLET (FP) PO SCH (09:00)
[2017-12-22] MEDS: NYSTATIN POWDER 100,000 UNITS/GM - 15 GM TOPICAL POWDER TP SCH (09:02)
--- NOTE | 2017-12-22 10:12 | PN ---
Progress Note (short form) - Note Progress Note: S: 82 year old female with longstanding history of persistent atrial fibrillation, hypertension, hypertensive cardiovascular disease, hypothyroidism , generalized osteoarthritis, history of aortic valvular disease with aortic regurgitation, vitamin D deficiency. Patient is undergoing physical therapy for ambulation. No chest pain, shortness of breath, or palpitations reported. According to her daughter, she needs a right knee replacement. Active Medications Generic Name Dose Route Start Last Admin Trade Name Freq PRN Reason Stop Dose Admin Acetaminophen 650 mg 12/18/17 11:23 12/19/17 15:00 Tylenol - PO 650 mg Q4H PRN Administration PAIN Calcium/Vitamin D 2 tab 12/18/17 18:45 12/22/17 09:00 Oscal 250 Mg+D - PO 2 tab DAILY [facility] Administration Cholecalciferol 2,000 unit 12/19/17 10:00 12/22/17 09:00 Vitamin D3 - PO 2,000 unit DAILY [facility] Administration Levothyroxine Sodium 112 mcg 12/19/17 07:00 12/22/17 06:42 Synthroid - PO 112 mcg DAILY@0700 [facility] Administration Losartan Potassium 50 mg 12/19/17 10:00 12/22/17 09:00 Cozaar - PO 50 mg DAILY [facility] Administration Melatonin 5 mg 12/18/17 18:10 12/21/17 22:08 Melatonin PO 5 mg HS PRN Administration INSOMNIA Metoprolol Tartrate 50 mg 12/19/17 10:00 12/22/17 09:00 Lopressor - PO 50 mg BID [facility] Administration Multivitamins 1 each 12/19/17 10:00 12/22/17 09:00 Total B With C - PO 1 each DAILY [facility] Administration Nystatin 1 applic 12/20/17 22:45 12/22/17 09:02 Nystop Powder - TP 1 applic DAILY [facility] Administration Ondansetron HCl 4 mg 12/18/17 11:23 Zofran Injection IVPUSH Q6H PRN NAUSEA Sertraline HCl 50 mg 12/19/17 10:00 12/22/17 09:00 Zoloft - PO 50 mg DAILY [facility] Administration Warfarin Sodium 5 mg 12/19/17 18:00 12/21/17 17:13 Coumadin - PO 5 mg DAILY@1800 [facility] Administration 82 year old female was complaining of generalized arthritic discomfort. No pallor, cyanosis, clubbing or jaundice. Last Vital Signs Temp Pulse Resp BP Pulse Ox 98.1 F 89 Irregular 18 115/74 96 12/22/17 06:00 12/22/17 06:00 12/22/17 06:00 12/22/17 06:00 12/22/17 06:00 Neck: Supple, no JVD, negative HJR, carotids were equal and upstrokes were normal, no thyromegaly appreciated. Heart: PMI was in the 5th intercostal space, no heaves or thrills, S1 and S2 were normal. No murmurs or gallops were appreciated. Lungs: Clear on auscultation bilaterally. Abdomen: Soft, nontender, no hepatosplenomegaly appreciated, and no palpable masses were felt. Extremities: No calf tenderness or dependent edema. CBC, BMP 12/22/17 06:30 12/22/17 06:30 Impression: 1. Persistent atrial fibrillation with controlled ventricular response. 2. Hypertension. 3. Hypothyroidism. 4. Morbid Obesity. 5. Generalized osteoarthritis. Recommendations: 1. Discharge when medically stable. 2. Outpatient follow up.
--- NOTE | 2017-12-22 15:23 | PN ---
Progress Note, Physician Chief Complaint: Left knee pain is improving C/O Rt wrist pain and swelling History of Present Illness: 82 year old female who comes in with acute on chronic L knee and L elbow pain. She says she has a history of arthritis and often has pain when walking. She uses a walker and knows her L knee needs to be replaced - Current Medication List Current Medications: Active Medications Acetaminophen (Tylenol -) 650 mg PO Q4H PRN PRN Reason: PAIN Last Admin: 12/19/17 15:00 Dose: 650 mg Calcium/Vitamin D (Oscal 250 Mg+D -) 2 tab PO DAILY [facility] Last Admin: 12/22/17 09:00 Dose: 2 tab Cholecalciferol (Vitamin D3 -) 2,000 unit PO DAILY [facility] Last Admin: 12/22/17 09:00 Dose: 2,000 unit Levothyroxine Sodium (Synthroid -) 112 mcg PO DAILY@0700 [facility] Last Admin: 12/22/17 06:42 Dose: 112 mcg Losartan Potassium (Cozaar -) 50 mg PO DAILY [facility] Last Admin: 12/22/17 09:00 Dose: 50 mg Melatonin (Melatonin) 5 mg PO HS PRN PRN Reason: INSOMNIA Last Admin: 12/21/17 22:08 Dose: 5 mg Metoprolol Tartrate (Lopressor -) 50 mg PO BID [facility] Last Admin: 12/22/17 09:00 Dose: 50 mg Multivitamins (Total B With C -) 1 each PO DAILY [facility] Last Admin: 12/22/17 09:00 Dose: 1 each Nystatin (Nystop Powder -) 1 applic TP DAILY [facility] Last Admin: 12/22/17 09:02 Dose: 1 applic Ondansetron HCl (Zofran Injection) 4 mg IVPUSH Q6H PRN PRN Reason: NAUSEA Sertraline HCl (Zoloft -) 50 mg PO DAILY [facility] Last Admin: 12/22/17 09:00 Dose: 50 mg Warfarin Sodium (Coumadin -) 5 mg PO DAILY@1800 [facility] Last Admin: 12/21/17 17:13 Dose: 5 mg - Objective Vital Signs: Vital Signs Temperature 98.7 F 12/22/17 10:00 Pulse Rate 84 12/22/17 10:00 Respiratory Rate 20 12/22/17 10:00 Blood Pressure 126/70 12/22/17 10:00 O2 Sat by Pulse Oximetry (%) 96 12/22/17 06:00 Morbid;y obese F c/O Left wrist pain after IV infiltration, now improving HEENT: Mm moist, no anemia, PEERLA, EOMI, NECK; No JVd No Bruit CHEST: Basal crep CVS; S1S2 IR no m/g/r ABDOMEN: Obese non tender BS+ EXT; Left ankle and knee swelling and tenderness, trace edema feet, Left wrist swelling and mild erythema 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: 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 non focal Labs: CBC, BMP 12/22/17 06:30 12/22/17 06:30 INR, PTT INR 2.89 (0.82-1.09) H 12/22/17 06:30 Problem List - Problems (1) Osteoarthritis involving multiple joints on both sides of body Assessment/Plan: Evaluated by PT patient has minimal mobility can get benift from PT will be Dc to a [facility] for PT , pain control Code(s): M15.9 - POLYOSTEOARTHRITIS, UNSPECIFIED (2) Persistent atrial fibrillation Assessment/Plan: Rate controlled on Coumadin INR therapeutic F/U INR in am Code(s): I48.1 - PERSISTENT ATRIAL FIBRILLATION (3) Hypothyroid Assessment/Plan: On Levothyroxine Code(s): E03.9 - HYPOTHYROIDISM, UNSPECIFIED (4) Hypokalemia Assessment/Plan: Resolved Code(s): E87.6 - HYPOKALEMIA
[2017-12-22] MEDS: WARFARIN NA 5 MG TABLET (UD) PO SCH (18:34)
[2017-12-22] MEDS ORDERED: PT OWN MED DRAWER 7, Y5N ONE (21:39)
[2017-12-22] MEDS: MELATONIN 5 MG TABLETS PO PRN (21:51)
[2017-12-23] MEDS: LEVOTHYROXINE NA 112 MCG TABLET (FP) PO SCH (06:47)
[2017-12-23] MEDS: LOSARTAN POTASSIUM 50 MG TABLET (FP) PO SCH (09:41)
[2017-12-23] MEDS: CALCIUM 250MG/VIT-D 125 UNITS 1 COMBO TABLET PO SCH (09:41)
[2017-12-23] MEDS: SERTRALINE HCL 50 MG TABLET (FP) PO SCH (09:41)
[2017-12-23] MEDS: METOPROLOL TARTRATE 50 MG TABLET (FP) PO SCH ×2 (09:41→22:35)
[2017-12-23] MEDS: CHOLECALCIFEROL (VITAMIN D3) 1,000 UNIT TABLET (FP) PO SCH (09:41)
[2017-12-23] MEDS: NYSTATIN POWDER 100,000 UNITS/GM - 15 GM TOPICAL POWDER TP SCH (09:42)
[2017-12-23] MEDS: VITAMIN B COMPLEX W/C COMBO TABLET (FP) PO SCH (09:42)
--- NOTE | 2017-12-23 13:54 | PN ---
Progress Note, Physician Chief Complaint: Left knee pain is improving Left wrist pain and erythema is improving. History of Present Illness: 82 year old female who comes in with acute on chronic L knee and L elbow pain. She says she has a history of arthritis and often has pain when walking. She uses a walker and knows her L knee needs to be replaced, developed wrist erythem after IV infiltration. - Current Medication List Current Medications: Active Medications Acetaminophen (Tylenol -) 650 mg PO Q4H PRN PRN Reason: PAIN Last Admin: 12/19/17 15:00 Dose: 650 mg Calcium/Vitamin D (Oscal 250 Mg+D -) 2 tab PO DAILY [facility] Last Admin: 12/23/17 09:41 Dose: 2 tab Cholecalciferol (Vitamin D3 -) 2,000 unit PO DAILY [facility] Last Admin: 12/23/17 09:41 Dose: 2,000 unit Levothyroxine Sodium (Synthroid -) 112 mcg PO DAILY@0700 [facility] Last Admin: 12/23/17 06:47 Dose: 112 mcg Losartan Potassium (Cozaar -) 50 mg PO DAILY [facility] Last Admin: 12/23/17 09:41 Dose: 50 mg Melatonin (Melatonin) 5 mg PO HS PRN PRN Reason: INSOMNIA Last Admin: 12/22/17 21:51 Dose: 5 mg Metoprolol Tartrate (Lopressor -) 50 mg PO BID [facility] Last Admin: 12/23/17 09:41 Dose: 50 mg Multivitamins (Total B With C -) 1 each PO DAILY [facility] Last Admin: 12/23/17 09:42 Dose: 1 each Nystatin (Nystop Powder -) 1 applic TP DAILY [facility] Last Admin: 12/23/17 09:42 Dose: 1 applic Ondansetron HCl (Zofran Injection) 4 mg IVPUSH Q6H PRN PRN Reason: NAUSEA Sertraline HCl (Zoloft -) 50 mg PO DAILY [facility] Last Admin: 12/23/17 09:41 Dose: 50 mg Warfarin Sodium (Coumadin -) 5 mg PO DAILY@1800 [facility] Last Admin: 12/22/17 18:34 Dose: 5 mg - Objective Vital Signs: Vital Signs Temperature 98.0 F 12/23/17 07:53 Pulse Rate 82 12/23/17 07:53 Respiratory Rate 18 12/23/17 07:53 Blood Pressure 144/84 12/23/17 07:53 O2 Sat by Pulse Oximetry (%) 97 12/23/17 09:00 Morbid;y obese F c/O Left wrist pain after IV infiltration, now improving HEENT: Mm moist, no anemia, PEERLA, EOMI, NECK; No JVd No Bruit CHEST: Basal crep CVS; S1S2 IR no m/g/r ABDOMEN: Obese non tender BS+ EXT; Left ankle and knee swelling and tenderness, trace edema feet, Left wrist swelling and mild erythema is improving 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
[2017-12-23 15:13] LABS: INR 2.92 (0.82-1.09)
[2017-12-23] MEDS ORDERED: WARFARIN NA 3 MG TABLET PO ONE (17:15)
[2017-12-23] MEDS: MELATONIN 5 MG TABLETS PO PRN (22:35)
[2017-12-24] MEDS: LEVOTHYROXINE NA 112 MCG TABLET (FP) PO SCH (06:14)
[2017-12-24 08:05] LABS: BASO % 0.9 % (0-2.0); EOS % 5.2 % (0-4.5); HEMATOCRIT 38.2 % (32.4-45.2); HEMOGLOBIN 12.5 GM/dL (10.7-15.3); LYMPH % 12.4 % (8-40); MCH 28.9 pg (25.7-33.7); MCHC 32.7 g/dl (32.0-36.0); MEAN CELL VOLUME 88.2 fl (80-96); MEAN PLT VOLUME 10.4 fl (7.5-11.1); MONO % 12.3 % (3.8-10.2); NEUT % 69.2 % (42.8-82.8); PLATELET COUNT 273 K/MM3 (134-434); RBC 4.32 M/mm3 (3.60-5.2); RDW 15.6 % (11.6-15.6); WHITE BLOOD COUNT 7.3 K/mm3 (4.0-10.0)
[2017-12-24 08:25] LABS: INR 3.01 (0.82-1.09)
[2017-12-24 09:00] LABS: CHLORIDE 104 mmol/L (98-107); POTASSIUM 4.2 mmol/L (3.5-5.1); SODIUM 141 mmol/L (136-145)
[2017-12-24] MEDS ORDERED: PT OWN MED DRAWER 7, Y5N ONE (09:02)
[2017-12-24] MEDS: CALCIUM 250MG/VIT-D 125 UNITS 1 COMBO TABLET PO SCH (09:08)
[2017-12-24] MEDS: METOPROLOL TARTRATE 50 MG TABLET (FP) PO SCH ×2 (09:09→21:33)
[2017-12-24] MEDS: VITAMIN B COMPLEX W/C COMBO TABLET (FP) PO SCH (09:09)
[2017-12-24] MEDS: CHOLECALCIFEROL (VITAMIN D3) 1,000 UNIT TABLET (FP) PO SCH (09:09)
[2017-12-24] MEDS: NYSTATIN POWDER 100,000 UNITS/GM - 15 GM TOPICAL POWDER TP SCH (09:09)
[2017-12-24] MEDS: SERTRALINE HCL 50 MG TABLET (FP) PO SCH (09:09)
[2017-12-24] MEDS: LOSARTAN POTASSIUM 50 MG TABLET (FP) PO SCH (09:09)
[2017-12-24 09:16] LABS: ANION GAP 8 (8-16); BLOOD UREA NITROGEN 18 mg/dL (7-18); CALCIUM 8.3 mg/dL (8.5-10.1); CO2 29 mmol/L (21-32); CREATININE 0.6 mg/dL (0.55-1.02); GLUCOSE,RANDOM 84 mg/dL (74-106)
[2017-12-24] MEDS: ACETAMINOPHEN 325 MG TABLET (FP) PO PRN (13:05)
--- NOTE | 2017-12-24 13:20 | PN ---
Progress Note, Physician Chief Complaint: Left knee pain is improving Left wrist pain and erythema is improving. History of Present Illness: 82 year old female who comes in with acute on chronic L knee and L elbow pain. She says she has a history of arthritis and often has pain when walking. She uses a walker and knows her L knee needs to be replaced, developed wrist erythem after IV infiltration. - Current Medication List Current Medications: Active Medications Acetaminophen (Tylenol -) 650 mg PO Q4H PRN PRN Reason: PAIN Last Admin: 12/24/17 13:05 Dose: 650 mg Calcium/Vitamin D (Oscal 250 Mg+D -) 2 tab PO DAILY [facility] Last Admin: 12/24/17 09:08 Dose: 2 tab Cholecalciferol (Vitamin D3 -) 2,000 unit PO DAILY [facility] Last Admin: 12/24/17 09:09 Dose: 2,000 unit Levothyroxine Sodium (Synthroid -) 112 mcg PO DAILY@0700 [facility] Last Admin: 12/24/17 06:14 Dose: 112 mcg Losartan Potassium (Cozaar -) 50 mg PO DAILY [facility] Last Admin: 12/24/17 09:09 Dose: 50 mg Melatonin (Melatonin) 5 mg PO HS PRN PRN Reason: INSOMNIA Last Admin: 12/23/17 22:35 Dose: 5 mg Metoprolol Tartrate (Lopressor -) 50 mg PO BID [facility] Last Admin: 12/24/17 09:09 Dose: 50 mg Multivitamins (Total B With C -) 1 each PO DAILY [facility] Last Admin: 12/24/17 09:09 Dose: 1 each Nystatin (Nystop Powder -) 1 applic TP DAILY [facility] Last Admin: 12/24/17 09:09 Dose: 1 applic Ondansetron HCl (Zofran Injection) 4 mg IVPUSH Q6H PRN PRN Reason: NAUSEA Sertraline HCl (Zoloft -) 50 mg PO DAILY [facility] Last Admin: 12/24/17 09:09 Dose: 50 mg Warfarin Sodium (Coumadin -) 5 mg PO DAILY@1800 [facility] Last Admin: 12/22/17 18:34 Dose: 5 mg - Objective Vital Signs: Vital Signs Temperature 97.8 F 12/24/17 08:56 Pulse Rate 72 12/24/17 08:56 Respiratory Rate 20 12/24/17 08:56 Blood Pressure 145/82 12/24/17 08:56 O2 Sat by Pulse Oximetry (%) 97 12/23/17 21:00 Morbid;y obese F c/O Left wrist pain after IV infiltration, now improving HEENT: Mm moist, no anemia, PEERLA, EOMI, NECK; No JVd No Bruit CHEST: Basal crep CVS; S1S2 IR no m/g/r ABDOMEN: Obese non tender BS+ EXT; Left ankle and knee swelling and tenderness, trace edema feet, Left wrist swelling and mild erythema is improving 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: 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 non focal Labs: CBC, BMP 12/24/17 06:25 12/24/17 06:25 INR, PTT INR 3.01 (0.82-1.09) H 12/24/17 06:25 Problem List - Problems (1) Osteoarthritis involving multiple joints on both sides of body Assessment/Plan: Evaluated by PT patient has minimal mobility can get benift from PT will be Dc to a [facility] for PT , pain control Code(s): M15.9 - POLYOSTEOARTHRITIS, UNSPECIFIED (2) Persistent atrial fibrillation Assessment/Plan: Rate controlled on Coumadin INR therapeutic F/U INR in am Code(s): I48.1 - PERSISTENT ATRIAL FIBRILLATION (3) Hypothyroid Assessment/Plan: On Levothyroxine Code(s): E03.9 - HYPOTHYROIDISM, UNSPECIFIED (4) Hypokalemia Assessment/Plan: Resolved Code(s): E87.6 - HYPOKALEMIA (5) HTN (hypertension) Assessment/Plan: Well controlled Code(s): I10 - ESSENTIAL (PRIMARY) HYPERTENSION (6) Atrial fibrillation Assessment/Plan: On AC INR 3.0 Coumadin 3 mg to night F/U INR Code(s): I48.91 - UNSPECIFIED ATRIAL FIBRILLATION Qualifiers: Atrial fibrillation type: chronic Qualified Code(s): I48.2 - Chronic atrial fibrillation
[2017-12-24] MEDS ORDERED: WARFARIN NA 5 MG TABLET (UD) PO SCH (18:00)
[2017-12-24] MEDS: MELATONIN 5 MG TABLETS PO PRN (21:33)
[2017-12-25] MEDS: LEVOTHYROXINE NA 112 MCG TABLET (FP) PO SCH (06:07)
[2017-12-25 07:25] LABS: BASO % 0.5 % (0-2.0); EOS % 5.3 % (0-4.5); HEMATOCRIT 37.1 % (32.4-45.2); HEMOGLOBIN 12.2 GM/dL (10.7-15.3); LYMPH % 12.6 % (8-40); MCH 28.9 pg (25.7-33.7); MEAN CELL VOLUME 87.8 fl (80-96); MEAN PLT VOLUME 9.5 fl (7.5-11.1); MONO % 11.1 % (3.8-10.2); NEUT % 70.5 % (42.8-82.8); PLATELET COUNT 288 K/MM3 (134-434); RBC 4.22 M/mm3 (3.60-5.2); RDW 15.5 % (11.6-15.6); WHITE BLOOD COUNT 8.2 K/mm3 (4.0-10.0)
[2017-12-25 07:29] LABS: INR 2.68 (0.82-1.09); PROTHROMBIN TIME (PATIENT) 30.3 SEC (9.7-13.0)
[2017-12-25 08:10] LABS: ANION GAP 6 (8-16); BLOOD UREA NITROGEN 16 mg/dL (7-18); CALCIUM 8.1 mg/dL (8.5-10.1); CHLORIDE 106 mmol/L (98-107); CO2 30 mmol/L (21-32); CREATININE 0.6 mg/dL (0.55-1.02); GLUCOSE,RANDOM 88 mg/dL (74-106); POTASSIUM 4.2 mmol/L (3.5-5.1); SODIUM 142 mmol/L (136-145)
[2017-12-25] MEDS: SERTRALINE HCL 50 MG TABLET (FP) PO SCH (09:41)
[2017-12-25] MEDS: CALCIUM 250MG/VIT-D 125 UNITS 1 COMBO TABLET PO SCH (09:41)
[2017-12-25] MEDS: VITAMIN B COMPLEX W/C COMBO TABLET (FP) PO SCH (09:41)
[2017-12-25] MEDS: LOSARTAN POTASSIUM 50 MG TABLET (FP) PO SCH (09:41)
[2017-12-25] MEDS: METOPROLOL TARTRATE 50 MG TABLET (FP) PO SCH ×2 (09:41→21:56)
[2017-12-25] MEDS: CHOLECALCIFEROL (VITAMIN D3) 1,000 UNIT TABLET (FP) PO SCH (09:41)
[2017-12-25] MEDS: ACETAMINOPHEN 325 MG TABLET (FP) PO PRN (09:43)
[2017-12-25] MEDS: NYSTATIN POWDER 100,000 UNITS/GM - 15 GM TOPICAL POWDER TP SCH (09:45)
--- NOTE | 2017-12-25 13:16 | PN ---
Progress Note, Physician Chief Complaint: Left knee pain is improving Left wrist pain and erythema is improving. History of Present Illness: 82 year old female who comes in with acute on chronic L knee and L elbow pain. She says she has a history of arthritis and often has pain when walking. She uses a walker and knows her L knee needs to be replaced, developed wrist erythem after IV infiltration. - Current Medication List Current Medications: Active Medications Acetaminophen (Tylenol -) 650 mg PO Q4H PRN PRN Reason: PAIN Last Admin: 12/25/17 09:43 Dose: 650 mg Calcium/Vitamin D (Oscal 250 Mg+D -) 2 tab PO DAILY [facility] Last Admin: 12/25/17 09:41 Dose: 2 tab Cholecalciferol (Vitamin D3 -) 2,000 unit PO DAILY [facility] Last Admin: 12/25/17 09:41 Dose: 2,000 unit Levothyroxine Sodium (Synthroid -) 112 mcg PO DAILY@0700 [facility] Last Admin: 12/25/17 06:07 Dose: 112 mcg Losartan Potassium (Cozaar -) 50 mg PO DAILY [facility] Last Admin: 12/25/17 09:41 Dose: 50 mg Melatonin (Melatonin) 5 mg PO HS PRN PRN Reason: INSOMNIA Last Admin: 12/24/17 21:33 Dose: 5 mg Metoprolol Tartrate (Lopressor -) 50 mg PO BID [facility] Last Admin: 12/25/17 09:41 Dose: 50 mg Multivitamins (Total B With C -) 1 each PO DAILY [facility] Last Admin: 12/25/17 09:41 Dose: 1 each Nystatin (Nystop Powder -) 1 applic TP DAILY [facility] Last Admin: 12/25/17 09:45 Dose: 1 applic Ondansetron HCl (Zofran Injection) 4 mg IVPUSH Q6H PRN PRN Reason: NAUSEA Sertraline HCl (Zoloft -) 50 mg PO DAILY [facility] Last Admin: 12/25/17 09:41 Dose: 50 mg Warfarin Sodium (Coumadin -) 2.5 mg PO DAILY@1800 [facility] Last Admin: 12/24/17 18:08 Dose: Not Given - Objective Vital Signs: Vital Signs Temperature 97.8 F 12/25/17 10:00 Pulse Rate 82 12/25/17 10:00 Respiratory Rate 20 12/25/17 10:00 Blood Pressure 138/88 12/25/17 10:00 O2 Sat by Pulse Oximetry (%) 95 12/25/17 08:32 Morbid;y obese F c/O Left wrist pain after IV infiltration, now improving HEENT: Mm moist, no anemia, PEERLA, EOMI, NECK; No JVd No Bruit CHEST: Basal crep CVS; S1S2 IR no m/g/r ABDOMEN: Obese non tender BS+ EXT; Left ankle and knee swelling and tenderness, trace edema feet, Left wrist swelling and mild erythema is improving [employer]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 [employer] ARTIST: AOx3 non focal Labs: CBC, BMP 12/25/17 06:30 12/25/17 06:30 INR, PTT INR 2.68 (0.82-1.09) H 12/25/17 06:30 Problem List - Problems (1) Osteoarthritis involving multiple joints on both sides of body Assessment/Plan: Evaluated by PT patient has minimal mobility can get benift from PT will be Dc to a [facility] for PT , pain control Code(s): M15.9 - POLYOSTEOARTHRITIS, UNSPECIFIED (2) Persistent atrial fibrillation Assessment/Plan: Rate controlled on Coumadin INR therapeutic F/U INR in am Code(s): I48.1 - PERSISTENT ATRIAL FIBRILLATION (3) Hypothyroid Assessment/Plan: On Levothyroxine Code(s): E03.9 - HYPOTHYROIDISM, UNSPECIFIED (4) HTN (hypertension) Assessment/Plan: Well controlled Code(s): I10 - ESSENTIAL (PRIMARY) HYPERTENSION (5) Atrial fibrillation Code(s): I48.91 - UNSPECIFIED ATRIAL FIBRILLATION Qualifiers: Atrial fibrillation type: chronic Qualified Code(s): I48.2 - Chronic atrial fibrillation
[2017-12-25] MEDS: WARFARIN NA 3 MG TABLET PO SCH (17:33)
[2017-12-25] MEDS ORDERED: PT OWN MED DRAWER 7, Y5N ONE (22:01)
[2017-12-25] MEDS: MELATONIN 5 MG TABLETS PO PRN (22:02)
[2017-12-26] MEDS: LEVOTHYROXINE NA 112 MCG TABLET (FP) PO SCH (06:29)
[2017-12-26 08:25] LABS: BASO % 0.5 % (0-2.0); EOS % 4.6 % (0-4.5); HEMATOCRIT 39.1 % (32.4-45.2); HEMOGLOBIN 12.9 GM/dL (10.7-15.3); LYMPH % 14.8 % (8-40); MCH 29.3 pg (25.7-33.7); MEAN CELL VOLUME 88.7 fl (80-96); MEAN PLT VOLUME 9.6 fl (7.5-11.1); MONO % 9.3 % (3.8-10.2); NEUT % 70.8 % (42.8-82.8); PLATELET COUNT 296 K/MM3 (134-434); RBC 4.41 M/mm3 (3.60-5.2); RDW 15.6 % (11.6-15.6); WHITE BLOOD COUNT 7.6 K/mm3 (4.0-10.0)
[2017-12-26 08:45] LABS: ANION GAP 5 (8-16); BLOOD UREA NITROGEN 19 mg/dL (7-18); CALCIUM 8.4 mg/dL (8.5-10.1); CHLORIDE 106 mmol/L (98-107); CO2 30 mmol/L (21-32); GLUCOSE,RANDOM 83 mg/dL (74-106); POTASSIUM 4.6 mmol/L (3.5-5.1); SODIUM 141 mmol/L (136-145)
[2017-12-26 08:58] LABS: CREATININE 0.6 mg/dL (0.55-1.02)
[2017-12-26] MEDS: CALCIUM 250MG/VIT-D 125 UNITS 1 COMBO TABLET PO SCH (10:05)
[2017-12-26] MEDS: SERTRALINE HCL 50 MG TABLET (FP) PO SCH (10:05)
[2017-12-26] MEDS: VITAMIN B COMPLEX W/C COMBO TABLET (FP) PO SCH (10:05)
[2017-12-26] MEDS: METOPROLOL TARTRATE 50 MG TABLET (FP) PO SCH ×2 (10:05→21:13)
[2017-12-26] MEDS: LOSARTAN POTASSIUM 50 MG TABLET (FP) PO SCH (10:05)
[2017-12-26] MEDS: CHOLECALCIFEROL (VITAMIN D3) 1,000 UNIT TABLET (FP) PO SCH (10:05)
[2017-12-26] MEDS: NYSTATIN POWDER 100,000 UNITS/GM - 15 GM TOPICAL POWDER TP SCH (10:08)
--- NOTE | 2017-12-26 12:28 | PN ---
Progress Note, Physician Chief Complaint: Ms Flowers feeling much improved. L hand pain and swelling almost resolved. No cp, sob, n/v. - Current Medication List Current Medications: Active Medications Acetaminophen (Tylenol -) 650 mg PO Q4H PRN PRN Reason: PAIN Last Admin: 12/25/17 09:43 Dose: 650 mg Calcium/Vitamin D (Oscal 250 Mg+D -) 2 tab PO DAILY [facility] Last Admin: 12/26/17 10:05 Dose: 2 tab Cholecalciferol (Vitamin D3 -) 2,000 unit PO DAILY [facility] Last Admin: 12/26/17 10:05 Dose: 2,000 unit Levothyroxine Sodium (Synthroid -) 112 mcg PO DAILY@0700 [facility] Last Admin: 12/26/17 06:29 Dose: 112 mcg Losartan Potassium (Cozaar -) 50 mg PO DAILY [facility] Last Admin: 12/26/17 10:05 Dose: 50 mg Melatonin (Melatonin) 5 mg PO HS PRN PRN Reason: INSOMNIA Last Admin: 12/25/17 22:02 Dose: 5 mg Metoprolol Tartrate (Lopressor -) 50 mg PO BID [facility] Last Admin: 12/26/17 10:05 Dose: 50 mg Multivitamins (Total B With C -) 1 each PO DAILY [facility] Last Admin: 12/26/17 10:05 Dose: 1 each Nystatin (Nystop Powder -) 1 applic TP DAILY [facility] Last Admin: 12/26/17 10:08 Dose: 1 applic Ondansetron HCl (Zofran Injection) 4 mg IVPUSH Q6H PRN PRN Reason: NAUSEA Sertraline HCl (Zoloft -) 50 mg PO DAILY [facility] Last Admin: 12/26/17 10:05 Dose: 50 mg Warfarin Sodium (Coumadin -) 3 mg PO DAILY@1800 [facility] Last Admin: 12/25/17 17:33 Dose: 3 mg - Objective Vital Signs: Vital Signs Temperature 36.6 C 12/26/17 10:00 Pulse Rate 82 12/26/17 10:00 Respiratory Rate 18 12/26/17 10:00 Blood Pressure 126/78 12/26/17 10:00 O2 Sat by Pulse Oximetry (%) 94 L 12/26/17 09:00 Constitutional: Yes: No Distress, Calm, Obese Cardiovascular: Yes: Pulse Irregular. No: Tachycardia, Gallop, Murmur, Rub Respiratory: Yes: Regular, CTA Bilaterally. No: Rales, Rhonchi, Wheezes Gastrointestinal: Yes: Normal Bowel Sounds, Soft. No: Distention, Tenderness Extremities: Yes: WNL Edema: Yes Edema: LUE: Trace (L wrist) Labs: CBC, BMP 12/26/17 06:43 12/26/17 06:43 INR, PTT INR 2.68 (0.82-1.09) H 12/25/17 06:30 Assessment/Plan (1) Elbow fracture, left Assessment/Plan: -no further intervention needed Code(s): S42.402A - UNSP FRACTURE OF LOWER END OF LEFT HUMERUS, INIT FOR CLOS FX Qualifiers: Encounter type: initial encounter Fracture type: closed Qualified Code(s) : S42.402A - Unspecified fracture of lower end of left humerus, initial encounter for closed fracture (2) Hypokalemia Assessment/Plan: -replaced Code(s): E87.6 - HYPOKALEMIA (3) HTN (hypertension) Assessment/Plan: -controlled -continue lopressor and cozaar Code(s): I10 - ESSENTIAL (PRIMARY) HYPERTENSION (4) Hypothyroid Assessment/Plan: -continue synthroid Code(s): E03.9 - HYPOTHYROIDISM, UNSPECIFIED (5) Atrial fibrillation Assessment/Plan: -continue lopressor and coumadin -increase coumadin secondary to subtherapeutic INR -daily INRs Code(s): I48.91 - UNSPECIFIED ATRIAL FIBRILLATION Qualifiers: Atrial fibrillation type: chronic Qualified Code(s): I48.2 - Chronic atrial fibrillation (6) Cellulitis -resolved -unclear if truly cellulitis -plan for discharge tomorrow Dispo d/c tomorrow to SNF
[2017-12-26 13:56] LABS: INR 1.62 (0.82-1.09); PROTHROMBIN TIME (PATIENT) 18.3 SEC (9.7-13.0)
[2017-12-26] MEDS: WARFARIN NA 3 MG TABLET PO SCH (17:16)
[2017-12-26] MEDS ORDERED: WARFARIN NA 5 MG TABLET (UD) PO SCH (17:20)
[2017-12-26] MEDS ORDERED: WARFARIN NA 2 MG TABLET (UD) PO ONE (17:45)
[2017-12-26] MEDS: MELATONIN 5 MG TABLETS PO PRN (21:13)
[2017-12-27] MEDS: LEVOTHYROXINE NA 112 MCG TABLET (FP) PO SCH (06:50)
[2017-12-27 08:07] LABS: BASO % 1.5 % (0-2.0); EOS % 4.4 % (0-4.5); HEMATOCRIT 38.1 % (32.4-45.2); HEMOGLOBIN 12.8 GM/dL (10.7-15.3); LYMPH % 13.7 % (8-40); MCH 29.5 pg (25.7-33.7); MCHC 33.5 g/dl (32.0-36.0); MEAN PLT VOLUME 9.5 fl (7.5-11.1); MONO % 8.3 % (3.8-10.2); NEUT % 72.1 % (42.8-82.8); PLATELET COUNT 322 K/MM3 (134-434); RBC 4.33 M/mm3 (3.60-5.2); RDW 15.4 % (11.6-15.6); WHITE BLOOD COUNT 7.8 K/mm3 (4.0-10.0)
[2017-12-27 08:31] LABS: INR 1.41 (0.82-1.09); PROTHROMBIN TIME (PATIENT) 15.9 SEC (9.7-13.0)
[2017-12-27 08:50] LABS: ANION GAP 6 (8-16); BLOOD UREA NITROGEN 21 mg/dL (7-18); CALCIUM 8.2 mg/dL (8.5-10.1); CHLORIDE 105 mmol/L (98-107); CO2 30 mmol/L (21-32); GLUCOSE,RANDOM 88 mg/dL (74-106); POTASSIUM 4.6 mmol/L (3.5-5.1); SODIUM 141 mmol/L (136-145)
[2017-12-27 08:52] LABS: CREATININE 0.7 mg/dL (0.55-1.02); MAGNESIUM 2.3 mg/dL (1.8-2.4); PHOSPHOROUS 3.8 mg/dL (2.5-4.9)
[2017-12-27] MEDS: ACETAMINOPHEN 325 MG TABLET (FP) PO PRN (09:27)
[2017-12-27] MEDS: SERTRALINE HCL 50 MG TABLET (FP) PO SCH (09:30)
[2017-12-27] MEDS: CALCIUM 250MG/VIT-D 125 UNITS 1 COMBO TABLET PO SCH (09:30)
[2017-12-27] MEDS: METOPROLOL TARTRATE 50 MG TABLET (FP) PO SCH (09:30)
[2017-12-27] MEDS: VITAMIN B COMPLEX W/C COMBO TABLET (FP) PO SCH (09:30)
[2017-12-27] MEDS: NYSTATIN POWDER 100,000 UNITS/GM - 15 GM TOPICAL POWDER TP SCH (09:31)
[2017-12-27] MEDS: LOSARTAN POTASSIUM 50 MG TABLET (FP) PO SCH (09:31)
[2017-12-27] MEDS: CHOLECALCIFEROL (VITAMIN D3) 1,000 UNIT TABLET (FP) PO SCH (09:31)
--- NOTE | 2017-12-27 13:00 | DS ---
Physical Examination Vital Signs: Vital Signs Temperature 36.7 C 12/27/17 09:27 Pulse Rate 89 12/27/17 09:27 Respiratory Rate 18 12/27/17 09:27 Blood Pressure 122/70 12/27/17 09:27 O2 Sat by Pulse Oximetry (%) 96 12/27/17 09:28 Constitutional: Yes: No Distress, Calm, Obese Cardiovascular: Yes: Regular Rate and Rhythm. No: Gallop, Murmur, Rub Respiratory: Yes: Regular, CTA Bilaterally. No: Rales, Rhonchi, Wheezes Gastrointestinal: Yes: Normal Bowel Sounds, Soft. No: Distention, Tenderness Extremities: Yes: WNL Edema: No Labs: CBC, BMP 12/27/17 07:10 12/27/17 07:10 Discharge Summary Reason For Visit: FX OF LEFT ELBOW OSTEOARTHRITIS Current Active Problems Atrial fibrillation (Acute) Cellulitis (Acute) Elbow fracture, left (Acute) HTN (hypertension) (Acute) Hypokalemia (Acute) Hypothyroid (Acute) Osteoarthritis involving multiple joints on both sides of body (Acute) Persistent atrial fibrillation (Acute) Hospital Course: (1) Elbow fracture, left Code(s): S42.402A - UNSP FRACTURE OF LOWER END OF LEFT HUMERUS, INIT FOR CLOS FX Qualifiers: Encounter type: initial encounter Fracture type: closed Qualified Code(s) : S42.402A - Unspecified fracture of lower end of left humerus, initial encounter for closed fracture (2) Hypokalemia Code(s): E87.6 - HYPOKALEMIA (3) HTN (hypertension) Code(s): I10 - ESSENTIAL (PRIMARY) HYPERTENSION (4) Hypothyroid Code(s): E03.9 - HYPOTHYROIDISM, UNSPECIFIED (5) Atrial fibrillation Code(s): I48.91 - UNSPECIFIED ATRIAL FIBRILLATION Qualifiers: Atrial fibrillation type: chronic Qualified Code(s): I48.2 - Chronic atrial fibrillation (6) Cellulitis Ms Flowers is a pleasant 82 year old female who comes in with inability to rise from chair and found to have a left elbow fracture. She was seen by orthopedic surgery who evaluated and no surgical interventions was recommended secondary to it being chronic. She has history of L knee osteoarthritis and will need to follow up as an outpatient for replacement. However while here her IV infiltrated and she developed a leukocytosis. There was concern for cellulitis since it worsened. She was seen by ID and originally started on vancomycin, but this was discontinued and she was monitored. It improved significantly. She is now stable for discharge to SNF for STR. Her INR is subtherapeutic, her coumadin was increased and this should be checked in 48 hours and adjusted as needed at SNF. 32 minutes spent in preparation of this discharge Condition: Good - Instructions Diet, Activity, Other Instructions: sodium controlled diet. up with assistance, further activity per PT at SNF. Check INR in 2 days and adjust coumadin as necessary to maintain INR 2-3. Referrals: Ajith Jones MD [Primary Care Provider] - Oh,Miguel Pollard MD [Staff Physician] - Disposition: CARE HOME FACILITY - Home Medications Comprehensive Discharge Medication List: Ambulatory Orders Calcium 250Mg/Vit-D 125 Units [Oscal 250 mg+D -] 2 combo PO DAILY 12/18/17 Cholecalciferol (Vitamin D3) [Vitamin D3] 2,000 unit PO DAILY 12/18/17 Levothyroxine Sodium [Levo-T] 112 mcg PO DAILY 12/18/17 Losartan Potassium 50 mg PO DAILY 12/18/17 Metoprolol Tartrate 50 mg PO BID 12/18/17 Sertraline HCl 50 mg PO DAILY 12/18/17 Vitamin B Complex [B Complex] 1 each PO DAILY 12/18/17 Warfarin Na [Coumadin -] 7.5 mg PO ASDIR 12/18/17 Acetaminophen [Tylenol .Regular Strength -] 650 mg PO Q4H PRN tablet 12/27/17 Melatonin 5 mg PO HS PRN tab 12/27/17
[2017-12-27 14:27] VITALS: BP 126/75; PULSE 78; TEMP 97.8
== END 2017-12-27 16:47 | DRG 563 ==
LOC: JER 22:53 → JERBED 12-18 03:30 → INTOOBSV 12-18 03:30 → UNDOADMOB 12-18 03:30 → UNDOADMIN 12-18 03:48 → JERBED 12-18 03:48 → J6S 12-18 20:46 → JERBED 12-19 11:41 → OBSVTOIN 12-20 16:53
PROVIDERS: ADMIT Internal Medicine; ATTEND Internal Medicine
DX: S42.402A Unspecified fracture of lower end of left humerus, initial encounter for closed fracture (principal); L03.114 Cellulitis of left upper limb; Z68.42 Body mass index [BMI] 45.0-49.9, adult; E87.6 Hypokalemia; E03.9 Hypothyroidism, unspecified; I48.0 Paroxysmal atrial fibrillation; E66.01 Morbid (severe) obesity due to excess calories; F41.9 Anxiety disorder, unspecified; E55.9 Vitamin D deficiency, unspecified; M19.90 Unspecified osteoarthritis, unspecified site; X58.XXXA Exposure to other specified factors, initial encounter; Y93.89 Activity, other specified; Y92.098 Other place in other non-institutional residence as the place of occurrence of the external cause; Y99.8 Other external cause status
CPT/HCPCS: 36415; 71045-TC-FY; 73070-TC-LT-FY; 73110-TC-LR-FY; 73130-TC-LR-FY; 73562-TC-LT-FY; 73562-TC-RT-FY; 80048; 80053; 82962; 83735; 84100; 84443; 84550; 85025; 85610; 87040; 93005; 93010; 97116-GP; 97162-GP; 99284-25; G0378